=== PATIENT | female | born 1960 | race Caucasian/White ===

== ENCOUNTER 2017-07-05 15:39 | Emergency (ER) | payer BC ==
[~2017-07-05] VITALS: Ht 162.6 cm; Wt 97.2 kg
[2017-07-05 16:12] LABS: MCH 29.1 PG (29.0-34.0); MCHC 33.1 G/DL (30.0-36.0); MCV 87.9 FL (83-99); MEAN PLAT.VOLUME 9.4 uM^3 (9.5-12.4); PLATELET COUNT 174 K/uL (156-360); RBC DIS.WIDTH-CV 12.6 % (11.8-14.6); RED BLOOD COUNT 3.98 M/uL (3.80-5.20); WHITE BLOOD COUNT 8.2 K/uL (4.1-10.2)
[2017-07-05 16:23] LABS: CHLORIDE 106 mEq/L (99-109); POTASSIUM 3.4 mEq/L (3.7-5.4); SODIUM 141 mEq/L (136-147)
[2017-07-05 16:24] LABS: GLUCOSE 127 mg/dL (70-99)
[2017-07-05 16:26] LABS: ANION GAP 10 MEQ/L (2-14)
[2017-07-05 16:28] LABS: GFR ESTIMATE (CALCULATED) > 59 mL/min/
[2017-07-05 16:29] LABS: UREA NITROGEN (BUN) 14 mg/dL (9-23)
[2017-07-05 16:35] LABS: TROP-I INTERPRETATION NEGATIVE; TROPONIN-I < 0.01 ng/mL (0.0-0.30)
[2017-07-05 21:27] VITALS: BP 180/92
== END 2017-07-05 21:28 | disposition home or self-care (01) ==
LOC: EME 15:39
PROVIDERS: Physician Assistant Medical
DX: R60.0 Localized edema (principal); M25.471 Effusion, right ankle; M25.472 Effusion, left ankle; K21.9 Gastro-esophageal reflux disease without esophagitis; Z87.891 Personal history of nicotine dependence
CPT/HCPCS: 71020; 80048; 83880; 84484; 85027; 93005; 93970; 99281; 99284